=== PATIENT | male | born 1995 | race Caucasian/White ===

== ENCOUNTER 2021-07-03 21:13 | Emergency (ER) | payer MEDICAID ==
[~2021-07-03] VITALS: Ht 180.3 cm; Wt 164.7 kg
--- NOTE | 2021-07-03 21:30 | NUR ---
BIBSELF C/O EPIGASTRIC PAIN MID ABD X 30 MIN . UPON ARRIVAL PT DENIES PAIN. PT A/OX4. TOLERATING R/A WELL WITH NO SOB. PT AMBULATORY WITH STEADY GAIT. CONNECTED PT TO POX AND MONITOR. SAFETY MEASURES IN PLACE.
[2021-07-03] MEDS ORDERED: OMEP40CA21 PO (21:39)
--- NOTE | 2021-07-03 21:52 | NUR ---
[employer] SAF[employer] AT PT'S BEDSIDE
[2021-07-03 22:24] VITALS: BP 134/78
--- NOTE | 2021-07-03 22:44 | NUR ---
Patient discharged to home in stable condition. Written and verbal after care instructions given. Patient verbalizes understanding of instruction. PT ambulatory with a steady gait
== END 2021-07-03 22:44 | disposition home or self-care (01) ==
LOC: ER 21:19
DX: K21.9 Gastro-esophageal reflux disease without esophagitis (principal); Z79.899 Other long term (current) drug therapy
CPT/HCPCS: 71045-TC

== ENCOUNTER 2021-07-27 18:41 | Emergency (ER) | payer MEDICAID, OTHER ==
[~2021-07-27] VITALS: Ht 180.3 cm; Wt 117.9 kg
[~2021-07-27 18:41] MED LIST: OMEP40CA21 PO
--- NOTE | 2021-07-27 19:30 | NUR ---
TO ER BED 16. BIBS C/O R FLANK PAIN X 1800. PAIN 5/10 ON P/S. CHANGED INTO GOWN. URINE COLLECTED. CONNECTED TO MONITOR. AWAITING MD CENTENO
[2021-07-27] MEDS ORDERED: KETOROLAC TROMETHAMINE 15 MG/ML VIAL ONE (20:01)
--- NOTE | 2021-07-27 20:05 | NUR ---
PT TAKEN FOR CT SCAN
--- NOTE | 2021-07-27 20:13 | NUR ---
PT BACK FROM CT, RECONNECTED TO MONITOR
[2021-07-27 20:22] LABS: BILIRUBIN,URINE SMALL (NEGATIVE); COLOR,URINE DARK YELLOW (YELLOW); LEUKOCYTE ESTERASE ,URINE NEGATIVE (NEGATIVE); NITRITE, URINE NEGATIVE (NEGATIVE); PH,URINE 5.5 (5.0-8.0); PROTEIN,URINE TRACE mg/dl (NEGATIVE); UGLUCOSE NEGATIVE (NEGATIVE); UROBILINOGEN,URINE 0.2 EU/dL (0.2)
--- NOTE | 2021-07-27 20:23 | NUR ---
IV LINE ESTABLISHED, RAC 18G. BLOOD COLLECTED AND SENT TO LAB
[2021-07-27] MEDS: IV NS 0.9% 1,000 ML BAG IV ONE (20:24)
[2021-07-27] MEDS: KETOROLAC TROMETHAMINE INJ 30 MG/ML VIAL IV ONE (20:24)
[2021-07-27 20:48] LABS: BACTERIA,URINE Few /HPF (None Seen); RBC,URINE 51-80 /HPF (0-2); SQUAMOUS EPITHELIAL CELL,UR Few /HPF (None Seen); YEAST,URINE Few /HPF (None Seen)
[2021-07-27 21:10] LABS: BASOPHILS # (AUTO) 0.1 K/uL (0.0-0.2); BASOPHILS % (AUTO) 0.4 % (0.0-2.0); EOSINOPHILS % (AUTO) 0.1 % (0.0-6.0); HEMATOCRIT 50 % (39-51); HEMOGLOBIN 16.3 g/dL (13.5-17.5); LYMPHOCYTES # (AUTO) 1.6 K/uL (0.8-4.8); LYMPHOCYTES % (AUTO) 10.5 % (20.0-44.0); MEAN CORPUSCULAR HGB CONC 33 g/dl (31.0-36.0); MEAN CORPUSCULAR VOLUME 85 fL (80-96); MONOCYTES % (AUTO) 6.7 % (2.0-12.0); NEUTROPHILS # (AUTO) 12.1 K/uL (1.8-8.9); NEUTROPHILS % (AUTO) 82.3 % (43.0-81.0); PLATELET COUNT (AUTO) 279 K/uL (150-450); WHITE BLOOD COUNT (AUTO) 14.8 K/uL (4.3-11.0)
[2021-07-27 21:29] LABS: POTASSIUM 4.2 mmol/L (3.5-5.1)
[2021-07-27 21:38] LABS: ALBUMIN 3.8 g/dL (3.4-5.0); BILIRUBIN,DIRECT 0.1 mg/dL (0.0-0.2); BILIRUBIN,TOTAL 0.3 mg/dL (0.2-1.0); TOTAL PROTEIN, SERUM 8.2 g/dL (6.4-8.2)
[2021-07-27] MEDS ORDERED: TAMSULOSIN 0.4 MG CAP.SR.24H ONE (22:03)
[2021-07-27] MEDS: TAMSULOSIN 0.4 MG CAP.SR.24H PO ONE (22:06)
[2021-07-27] MEDS ORDERED: HYDR-4303 PO (22:11)
[2021-07-27] MEDS ORDERED: IBUP-1955 PO (22:11)
[2021-07-27] MEDS ORDERED: TAMS-12 PO (22:11)
--- NOTE | 2021-07-27 22:32 | NUR ---
Patient discharged to home in stable condition. Written and verbal after care instructions given. Patient verbalizes understanding of instruction. IV removed. Catheter intact and site benign. Pressure and 4x4 applied to site. No bleeding noted.
[2021-07-27 22:34] VITALS: BP 138/77
== END 2021-07-27 22:35 | disposition home or self-care (01) ==
LOC: ER 18:45
DX: N13.2 Hydronephrosis with renal and ureteral calculous obstruction (principal); N23 Unspecified renal colic; E66.9 Obesity, unspecified; Z68.36 Body mass index [BMI] 36.0-36.9, adult; R16.1 Splenomegaly, not elsewhere classified; K75.81 Nonalcoholic steatohepatitis (NASH); Q53.10 Unspecified undescended testicle, unilateral; D72.829 Elevated white blood cell count, unspecified; R31.0 Gross hematuria; Z79.899 Other long term (current) drug therapy
CPT/HCPCS: 36415; 74176; 80048; 80076; 81001; 85025; 87086; 96361; 96374; 99284; J1885; J7030

== ENCOUNTER 2023-01-10 22:29 | Emergency (ER) | payer OTHER ==
[~2023-01-10 22:29] MED LIST changes: +HYDR-4303 PO; +IBUP-1955 PO; +TAMS-12 PO
== END 2023-01-11 01:24 | disposition left against medical advice (07) ==
LOC: ER 22:36
DX: M54.9 Dorsalgia, unspecified (principal); Z53.21 Procedure and treatment not carried out due to patient leaving prior to being seen by health care provider